=== PATIENT | female | born 1970 | race Caucasian/White ===

== ENCOUNTER 2020-07-05 15:11 | Outpatient (CLI) | payer OTHER, SELFPAY ==
--- NOTE | ~2020-07-05 | MM_ITS ---
EXAMINATION: MM screening louisa BI w sasha HISTORY: Screening mammogram TECHNIQUE: Craniocaudal and mediolateral oblique 3-D tomosynthesis images were obtained and synthetic 2-D images were generated. CAD analysis was submitted and interpreted. COMPARISON: 04/13/2019 diagnostic left digital mammogram and complete left breast ultrasound examinati on 04/07/2019, 10/08/2017, 01/2017 bilateral digital screening mammogram examinations BREAST PARENCHYMAL COMPOSITION: The breasts are heterogeneously dense, which may obscure small masses . FINDINGS: There is stable asymmetry in the upper inner quadrant of the left breast in an area of prev iously reported benign excisional breast biopsy. History of bilateral benign breast biopsies. There is no evidence of suspicious mass, calcification, or interval architectural distortion to sugg est malignancy in either breast. There has been no suspicious interval change. IMPRESSION: 1. No mammographic evidence of malignancy. 2. Recommend routine screening mammography in one year. BI-RADS Category 2: Benign finding(s). Reviewed, dictated and finalized at location A. INE ENGRAVER
== END 2020-07-05 15:12 | disposition home or self-care (01) ==
LOC: ANHIMG 15:14
PROVIDERS: PCP Family Medicine; Visit Provider Family Medicine
DX: Z12.31 Encounter for screening mammogram for malignant neoplasm of breast (principal)
CPT/HCPCS: 77063; 77067

== ENCOUNTER → 2020-10-05 14:03 | Outpatient (CLI) | payer OTHER, SELFPAY ==
--- NOTE | ~2020-10-05 | XR_ITS ---
EXAMINATION: XR wrist RT min 3V EXAM DATE: 10/05/2020 14:24 INDICATION: Pain in right wrist, injury. Initial encounter. TECHNIQUE: Right wrist frontal, frontal with ulnar deviation, oblique and lateral projections obtain ed and reviewed. There is no prior study for comparison. FINDINGS: Right wrist scapholunate joint space is maintained. There are no acute fractures or disloca tions identified. There is no subcutaneous gas. The soft tissue is unremarkable. There are no rad iopaque foreign bodies. IMPRESSION: No acute osseous findings. Reviewed, dictated and finalized at location A. K BAR COOK IMPRESSION: No acute osseous findings.
== END ==
PROVIDERS: PCP Family Medicine; Visit Provider Family Medicine
DX: M25.531 Pain in right wrist (principal)
CPT/HCPCS: 73110

== ENCOUNTER → 2021-08-02 02:15 | Outpatient (CLI) | payer OTHER, SELFPAY ==
[2021-08-02 20:34] LABS: SARS-CoV-2 RNA PCR Positive
== END ==
PROVIDERS: PCP Family Medicine; Visit Provider Physician Assistant Medical
DX: U07.1 COVID-19 (principal)
CPT/HCPCS: C9803; U0003; U0005

== ENCOUNTER 2021-08-14 10:41 | Outpatient (CLI) | payer OTHER, SELFPAY ==
--- NOTE | ~2021-08-14 | MM_ITS ---
EXAMINATION: MM screening louisa BI w sasha HISTORY: Screening TECHNIQUE: Craniocaudal and mediolateral oblique 3-D tomosynthesis images were obtained and synthetic 2-D images were generated. CAD analysis was submitted and interpreted. COMPARISON: Comparison to multiple prior studies sequentially, with oldest reviewed study dated 08/20. BREAST PARENCHYMAL COMPOSITION: The breasts are heterogeneously dense, which may obscure small masses . FINDINGS: The right breast is stable without evidence for malignancy. There are areas of possible arc hitectural distortion scattered throughout the left breast IMPRESSION: 1. Multiple possible areas of architectural distortion in the left breast. 2. Additional mammographic views and possible breast ultrasound are recommended. BI-RADS Category 0: Incomplete: Needs additional imaging evaluation. Reviewed, dictated and finalized at location A. PACKER IMPRESSION: 1. Multiple possible areas of architectural distortion in the left breast. 2. Additional mammographic views and possible breast ultrasound are recommended . BI-RADS Category 0: Incomplete: Needs additional imaging evaluation.
== END 2021-08-14 10:42 | disposition home or self-care (01) ==
LOC: ANHIMG 10:43
PROVIDERS: PCP Family Medicine; Visit Provider Family Medicine
DX: Z12.31 Encounter for screening mammogram for malignant neoplasm of breast (principal); R92.8 Other abnormal and inconclusive findings on diagnostic imaging of breast
CPT/HCPCS: 77063; 77067

== ENCOUNTER 2021-09-04 11:42 | Outpatient (CLI) | payer OTHER, SELFPAY ==
--- NOTE | ~2021-09-04 | MMUS_ITS ---
EXAMINATION: MM diagnostic louisa LT w sasha, US breast LT complete HISTORY: Follow-up possible or architectural distortion. TECHNIQUE: Additional 3-D tomosynthesis images of the left breast were performed and synthetic 2-D im ages were generated. CAD analysis was submitted and interpreted. High resolution complete left breast ultrasound was performed. COMPARISON: Comparison to multiple prior studies sequentially, with oldest reviewed study dated 01/2017. BREAST PARENCHYMAL COMPOSITION: The breasts are heterogenously dense, which may obscure small masses FINDINGS: MAMMOGRAPHIC FINDINGS: The areas of asymmetry noted on prior screening mammogram are less apparent with spot compression and mediolateral view. No discrete mass or suspicious clustered calcifications are identified. ULTRASOUND: Complete left breast ultrasound including all 4 quadrants in the retroareolar region: Normal heterogeneous echotexture without focal mass IMPRESSION: 1. . Probable benign focal asymmetries of the left breast without sonographic correlate. 2. Recommend 6 month follow-up diagnostic left mammogram. BI-RADS category 3, probably benign findings. Reviewed, dictated and finalized at location A. IC HEALTH EPIDEMIOLOGIST IMPRESSION: 1. . Probable benign focal asymmetries of the left breast without sonographic c orrelate. 2. Recommend 6 month follow-up diagnostic left mammogram. BI-RADS category 3, probably benign findings.
== END 2021-09-04 11:43 | disposition home or self-care (01) ==
LOC: ANHIMG 11:43
PROVIDERS: PCP Family Medicine; Visit Provider Family Medicine
DX: R92.8 Other abnormal and inconclusive findings on diagnostic imaging of breast (principal)
CPT/HCPCS: 76641; 77061; 77065; G0279

== ENCOUNTER 2022-01-12 13:39 | Emergency (ER) | payer OTHER, SELFPAY ==
--- NOTE | ~2022-01-12 | CT_ITS ---
EXAMINATION: CT brain wo con DATE: 01/12/2022 14:34 INDICATION: fall, head injury, nausea . TECHNIQUE: Computed tomography (CT) of the head was performed without intravenous contrast. The mA wa s adjusted according to patient size. Iterative reconstruction technique was employed. The dose-lengt h product was 605.33 mGy-cm. COMPARISON: CT sinus 10/08/2017. MR brain 03/26/2014. FINDINGS: No acute intracranial hemorrhage or extra-axial fluid collection. No hydrocephalus, mass, or herniation. No acute ischemic infarct. Unremarkable dural venous sinus attenuation. No acute osseous abnormality. Minimal mucosal opacification in the middle left ethmoid air cells and left maxillary sinus, otherwis e the aerated spaces are clear. IMPRESSION: No acute intracranial process. Reviewed, dictated and finalized at location K.
[2022-01-12 13:41] VITALS: BP 124/101; PULSE 74; RESP 16; TEMP 36.2; O2SAT 100
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
[2022-01-12] MEDS: ACETAMINOPHEN/ASPIRIN/CAFFEINE 250-250-65 MG TABLET 1 TABLET PO (14:56)
== END 2022-01-12 15:03 | disposition home or self-care (01) ==
PROVIDERS: Emergency Provider Emergency Medicine; PCP Family Medicine
DX: S06.0X0A Concussion without loss of consciousness, initial encounter (principal); E03.9 Hypothyroidism, unspecified; Z87.891 Personal history of nicotine dependence; Z79.84 Long term (current) use of oral hypoglycemic drugs; W20.8XXA Other cause of strike by thrown, projected or falling object, initial encounter
CPT/HCPCS: 70450; 99284; A9270

== ENCOUNTER 2022-04-01 12:19 | Outpatient (CLI) | payer OTHER, SELFPAY ==
--- NOTE | ~2022-04-01 | MM_ITS ---
EXAMINATION: MM diagnostic louisa LT w sasha HISTORY: Six-month follow-up for probably benign left breast architectural distortion. TECHNIQUE: Craniocaudal, mediolateral, and mediolateral oblique 3-D tomosynthesis images of the left breast were performed and synthetic 2-D images were generated. CAD analysis was submitted and interpr eted. COMPARISON: 09/04/2021, 08/14/2021, 07/05/2020 BREAST PARENCHYMAL COMPOSITION: The breasts are heterogeneously dense, which may obscure small masses . FINDINGS: There is stable architectural distortion in the upper inner quadrant of the left breast at the site of prior biopsy. No additional areas of architectural distortion are identified. There is no suspicious mass or calcification. IMPRESSION: 1. No mammographic evidence of malignancy. 2. Routine screening mammography is recommended. BI-RADS Category 2: Benign finding(s). Reviewed, dictated and finalized at location A.
== END 2022-04-01 12:20 | disposition home or self-care (01) ==
LOC: ANHIMG 12:20
PROVIDERS: PCP Family Medicine; Visit Provider Family Medicine
DX: R92.8 Other abnormal and inconclusive findings on diagnostic imaging of breast (principal)
CPT/HCPCS: 77061; 77065; G0279

== ENCOUNTER → 2022-10-31 08:22 | Outpatient (CLI) | payer OTHER, SELFPAY ==
--- NOTE | ~2022-10-31 | CT_ITS ---
CT scan of the Neck Technique: 2.5 mm axial scans were obtained through the neck after intravenous administration of 75 c c Omnipaque 350. Coronal and sagittal reconstructions of the neck were obtained. Dose reduction techn ique was used on this scan by utilizing automated exposure control and iterative reconstruction techn ique. The dose-length product (DLP) was 351.46 mGy-cm. Clinical History: Left parotid tumor Findings: There is no evidence of any significant cervical lymphadenopathy. Several small, nonenlarged jugulo- digastric and posterior cervical lymph nodes are noted bilaterally. Parapharyngeal spaces appear norm al bilaterally. Small probable bilateral intraparotid lymph nodes are present. No overtly suspicious parotid mass identified in either side. Submandibular glands are unremarkable. The pharyngeal mucosal spaces appear normal. No soft tissue masses are seen in the neck. The thyroid gland appears normal. Images of the lung apices reveal no abnormalities. Impression: No abnormal mass lesion identified. In particular, no suspicious parotid mass identified. Reviewed, dictated and finalized at location . Impression: No abnormal mass lesion identified. In particular, no suspicious parotid mass i dentified.
== END ==
PROVIDERS: PCP Family Medicine; Visit Provider Otolaryngology
DX: D49.0 Neoplasm of unspecified behavior of digestive system (principal)
CPT/HCPCS: 70491; Q9967

== ENCOUNTER 2023-08-05 15:29 | Outpatient (CLI) | payer OTHER, SELFPAY ==
--- NOTE | ~2023-08-05 | MM_ITS ---
EXAMINATION: MM screening louisa BI w sasha HISTORY: Screening mammogram TECHNIQUE: Craniocaudal and mediolateral oblique 3-D tomosynthesis images were obtained and synthetic 2-D images were generated. CAD analysis was submitted and interpreted. COMPARISON: 04/01/2022, 09/04/2021, 08/14/2021, 07/05/2020 BREAST PARENCHYMAL COMPOSITION: The breasts are heterogeneously dense, which may obscure small masses . FINDINGS: Again noted is stable architectural distortion in the upper inner quadrant of the left partha st at the site of prior excisional biopsy. No suspicious mass, calcification, or architectural distor tion are identified in either breast to suggest malignancy. There has been no suspicious interval merari nge. IMPRESSION: 1. No mammographic evidence of malignancy. 2. Recommend routine screening mammography in one year. BI-RADS Category 2: Benign finding(s). Reviewed, dictated and finalized at location A. CATION ANALYST
--- NOTE | ~2023-08-05 | DEXA_ITS ---
Bone Density Report Name: MIKEL VARGAS Age: 53 Sex: Female Ethnicity: White Date of : 1970 Indication: postmenopausal; screening for osteoporosis; hysterectomy; Referring Provider: WHITNEY ZHANG Study: Bone densitometry was performed. Exam Date: August 05, 2023 Accession number: [id number] Bone Density: Region BMD T-score Z-score Classification AP Spine(L1-L4) 0.854 -1.8 -0.7 Osteopenia Femoral Neck (Left) 0.678 -1.5 -0.5 Osteopenia Total Hip (Left) 0.879 -0.5 0.2 Normal Femoral Neck (Right) 0.717 -1.2 -0.1 Osteopenia Total Hip (Right) 0.865 -0.6 0.0 Normal Total Hip Mean 0.872 -0.6 0.1 Normal World Health Organization criteria for BMD impression classify patients as: Normal (T-score at or above -1.0), Osteopenia (T-score between -1.0 and -2.5), or Osteoporosis (T-score at or below -2.5). 10-year Fracture Risk(1): Major Osteoporotic Fracture 6.4% Hip Fracture 0.5% Reported Risk Factors: [place] (), Neck BMD=0.678, BMI=31.6 (1) FRAX(R) Version 3.08. Fracture probability calculated for an untreated patient. Fracture probability may be lower if the patient has received treatment. Clinical Information Provided by Patient: Has used the following medications: Vitamin D Has the following medical conditions: Hysterectomy Patient maximum height was 65 Menopause Age: 51 No regular weight bearing exercise Drinks caffeinated beverages Onset of menses at age 1 Number of children 16 Impression: The patient has low bone mass, based on the Total Spine T-score. The patient has an estimated ten-year risk of hip fracture of 0.5% and an estimated ten-year risk of major fracture of 6.4%, based on the WHO FRAX algorithm. Discussion: BONE DENSITY IS LOW AT ONE OR MORE SKELETAL SITES. This patient's lowest T-score is low at one or more skeletal sites. It meets the World Health Organization's (WHO) criteria for ?low bone mass? (T-score between -1.0 and -2.5). The patient's 10-year risk of fracture as calculated by FRAX is less than the threshold where pharmacological therapy is recommended by the National Osteoporosis Foundation (NOF). However, all treatment decisions require clinical judgment and consideration of individual patient factors, including patient preferences, comorbidities, previous drug use, risk factors not captured in the FRAX model (e.g., frailty, falls, vitamin D deficiency, increased bone turnover, interval significant decline in bone density) and possible under or overestimation of fracture risk by FRAX. The patient should follow a healthful lifestyle (good nutrition with adequate calcium and vitamin D, and appropriate weight-bearing exercise). Follow-Up: Consider repeating this study in 2 to 3 years to reassess this patient's status, or sooner if there is
== END 2023-08-05 15:30 | disposition home or self-care (01) ==
PROVIDERS: PCP Family Medicine; Visit Provider Physician Assistant
DX: Z12.31 Encounter for screening mammogram for malignant neoplasm of breast (principal); Z78.0 Asymptomatic menopausal state; M85.88 Other specified disorders of bone density and structure, other site; M85.852 Other specified disorders of bone density and structure, left thigh; M85.851 Other specified disorders of bone density and structure, right thigh
CPT/HCPCS: 77063; 77067; 77080

== ENCOUNTER 2024-02-16 09:36 | Outpatient (CLI) | payer OTHER, SELFPAY ==
--- NOTE | ~2024-02-16 | MR_ITS ---
MR breast BI wo/w con 02/16/2024 15:55 CDT INDICATION: Family history of breast cancer. TECHNIQUE: MRI of the breasts perform using standard protocol pre-and post IV contrast with the follo wing sequences: Axial T2 STIR, axial T1, axial vibrant T1 with fat suppression precontrast and multip hasic postcontrast. 14 cc MultiHance administered intravenously. Mammogram dated 08/05/2023 COMPARISON: FINDINGS: There are no abnormalities on the precontrast sequences. There is minimal background parenc hymal enhancement. No enhancing lesions following contrast administration. No areas of enhancement meeting threshold criteria on CAD analysis. No evidence of signal abnormalities in the axillary or i nternal mammary node distributions. LEFT BREAST: No signal abnormalities on precontrast sequences. There is minimal background parenchym al enhancement. No enhancing lesions following contrast administration. No areas of enhancement me eting threshold criteria on CAD analysis. No evidence of signal abnormalities in the axillary or in ternal mammary node distributions.] Incidental note is made of a gallstone. IMPRESSION: 1: Right breast: Negative. No evidence of malignancy. BI-RADS category 1. Recommend annual mammo graphy follow-up. 2: Left breast: Negative. No evidence of malignancy. BI-RADS category 1. Recommend annual mammogr aphy follow-up. Follow-up MRI may be useful for supplementing mammographic evaluation as clinically indicated. Reviewed, dictated and finalized at location B. IMPRESSION: 1: Right breast: Negative. No evidence of malignancy. BI-RADS category 1. Recommend annual mammography follow-up. 2: Left breast: Negative. No evidence of malignancy. BI-RADS category 1. Re commend annual mammography follow-up. Follow-up MRI may be useful for supplementing mammographic evaluation as clinic ally indicated.
== END 2024-02-16 09:37 | disposition home or self-care (01) ==
LOC: ANHIMG 09:40
PROVIDERS: PCP Family Medicine; Visit Provider Family Medicine
DX: Z12.31 Encounter for screening mammogram for malignant neoplasm of breast (principal); R92.8 Other abnormal and inconclusive findings on diagnostic imaging of breast; Z87.898 Personal history of other specified conditions; Z80.3 Family history of malignant neoplasm of breast
CPT/HCPCS: 77049; A9577; C8908

== ENCOUNTER 2024-10-09 08:08 | Emergency (ER) | payer OTHER, SELFPAY ==
--- NOTE | ~2024-10-09 | XR_ITS ---
EXAMINATION: XR hand RT min 3V DATE: 10/09/2024 08:58 INDICATION: Right hand injury. TECHNIQUE: 3 views of right hand were obtained. COMPARISON: Right wrist radiographs 10/05/2020 FINDINGS: Alignment is normal. No fracture. There is mild osteoarthritis of third and fourth distal i nterphalangeal joints. IMPRESSION: 1. No fracture or radiopaque foreign body. Reviewed, dictated and finalized at location A. 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
[2024-10-09 08:30] VITALS: BP 106/78; PULSE 77; RESP 16; TEMP 36.6; O2SAT 100
--- NOTE | 2024-10-09 08:52 | ED.UPPEXIN ---
HPI - Extremity Injury (Upper) General Chief Complaint: Extremity Injury, Upper Stated Complaint: RT hand injury History of Present Illness HPI narrative: 54-year-old female presents today with complaints of right hand pain. Patient was working on [employer] last night when she thinks that she got a nail into her right palm. She did not pull anything out. Patient with the erythema and swelling to base of right thumb on palmar aspect. No purulent drainage noted. Patient with full range of motion. Tetanus is up-to-date and 2022. No foreign object visualized or felt. Related Data Allergies Allergy/AdvReac Type Severity Reaction Status Date / Time erythromycin base Allergy Unknown Nausea Verified 10/09/24 08:31 Review of Systems Review of Systems: All systems reviewed & are unremarkable except as noted in HPI and below Eyes: Eyes: Reports as per HPI ENT: Reports as per HPI Cardiovascular: Cardiovascular: Reports as per HPI Respiratory: Respiratory: Reports as per HPI Genitourinary: Genitourinary: Reports as per HPI Musculoskeletal: Musculoskeletal: Reports as per HPI Integumentary/Breasts: Skin/Breast: Reports as per HPI Neurologic: Reports as per HPI Psychiatric: Psychiatric: Reports as per HPI Endocrine: Endocrine: Reports as per HPI Hematologic/Lymphatic: Hematologic/Lymphatic: Reports as per HPI Allergic/Immunologic: Allergic/Immunologic: Reports as per HPI PMF Past Medical History Medical History Bilateral knee pain Excessive bleeding in the premenopausal period Infusion reaction iron Perimenopausal vasomotor symptoms Right wrist pain Surgical History Surgical History History of sinus surgery Family History Family History Grandparent Family history of lung cancer Family history of malignant neoplasm of male breast Family history of migraine headaches Family history of malignant neoplasm of breast Father Family history of migraine headaches Malignant neoplasm of prostate Patient's father is in good health Family history of hearing loss Mother Family history of migraine headaches Patient's mother is in good health Family history of anemia Sibling Patient's sister is in good health Patient's brother is in good health Other Diabetes mellitus Family history of breast disorder Social History Social History Smoking status: Never smoker Smoking end date: 08/04/10 Alcohol intake: current Substance use: current Substance use type: marijuana Other substance usage details: smokes but very rarely Lack of Transportation: No Lack of Food: Never True Current Housing: I Have Housing Concerned About Future Housing: No Difficulty Paying Gas/Electric Bills: No Difficulty Paying for Meds: No Currently Unemployed: No Education: Master's Degree or Higher Difficulty w/ Childcare or Family Care: No Spiritual care concerns: No Exam Const: General: cooperative, healthy appearing, comfortable, no acute distress and well developed Orientation/consciousness: patient oriented x3 HENMT: Head: normal to inspection Eyes: General: appearance normal, both eyes and all related structures Resp: Effort & Inspection: normal respiratory effort and able to speak in complete sentences Auscultation: clear to auscultation bilaterally Cardio: Rate: regular rate Rhythm: regular rhythm Heart sounds: S1 normal heart sound present and S2 normal heart sound present Skin: General skin exam: normal color Wounds: wounds noted Other: right hand base of thumb looney aspect with scab erythema and small amount of swelling. Neuro: General: patient oriented x3 Cognition (Neuro): normal cognition Speech: normal speech Psych: Mental Status: mental status grossly normal Course Course Level of Care: Express Care Visit Vital Signs Vital signs: Vital Signs Temperature 98 F 10/09/24 08:30 Pulse Rate 77 10/09/24 08:30 Respiratory Rate 16 10/09/24 08:30 Blood Pressure 106/78 10/09/24 08:30 Pulse Oximetry 100 10/09/24 08:30 Temperature 98 F 10/09/24 08:30 Pulse Rate 77 10/09/24 08:30 Respiratory Rate 16 10/09/24 08:30 Blood Pressure 106/78 10/09/24 08:30 Pulse Oximetry 100 10/09/24 08:30 MDM - Extremity Injury (Upper) MDM Narrative Medical decision making narrative: 54-year-old female HPI started. Differentials include but not limited to cellulitis, retained foreign object, abrasion. Tetanus is up-to-date and last was done in 2022. x-ray obtained for evaluation of retained foreign material. No foreign object noted. Will treat with cephalexin 500 t.i.d. x7 days for cellulitis due to puncture wound. Discussed follow-up an to ER with worsening or concerning symptoms. Medical Records Attestation: I reviewed the patient's medical records. Imaging Data Attestation: I personally reviewed and interpreted this imaging study as follows: Radiologist's impression: Impressions Hand X-Ray 10/09/24 09:05 IMPRESSION: 1. No fracture or radiopaque foreign body. Discharge Plan Discharge Clinical Impression: Puncture wound, Cellulitis Patient Disposition: Home, Self-Care Condition: Stable Instructions: Antibiotic Form, Puncture Wound (ED) Additional Instructions: There is no foreign body noted on her x-ray. Please take antibiotics as prescribed. Return with any worsening or concerning symptoms. To ER with emergent or severe symptoms. Patient Language: Japanese Prescriptions: New cephalexin 500 mg capsule 500 mg PO Q8H 7 Days Qty: 21 0RF No Action ibuprofen 600 mg tablet See Rx Instructions .ROUTE .COMPLEX Qty: 270 3RF Dose Instruction: TAKE 1 TABLET THREE TIMES A DAY NEEDED FOR PAIN Rx Instructions: TAKE 1 TABLET THREE TIMES A DAY NEEDED FOR PAIN metformin 500 mg tablet extended release 24 hr See Rx Instructions .ROUTE .COMPLEX Qty: 360 3RF Dose Instruction: AT THE START OF THERAPY TAKE 1 TABLET EVERY EVENING. INCREASE BY 500 MG DAILY EVERY WEEK TOLERATED. MAXIMUM 4 TABLETS (2000 MG) PER DAY Rx Instructions: AT THE START OF THERAPY TAKE 1 TABLET EVERY EVENING. INCREASE BY 500 MG DAILY EVERY WEEK TOLERATED. MAXIMUM 4 TABLETS (2000 MG) PER DAY desloratadine 5 mg tablet 5 mg PO DAILY Qty: 90 2RF levothyroxine [Synthroid] 137 mcg tablet 137 mcg PO DAILY Qty: 90 2RF rizatriptan 10 mg tablet See Rx Instructions PO .COMPLEX Qty: 90 1RF Rx Instructions: take 1 tab at onset of headache; if no relief may repeat 1 tab after at least 2 hrs; max = 3 tabs/24 hr PO Veozah 45 mg tablet 45 mg PO DAILY Qty: 90 3RF cholecalciferol (vitamin D3) 1,250 mcg (50,000 unit) capsule See Rx Instructions .ROUTE .COMPLEX Qty: 12 3RF Dose Instruction: TAKE 1 CAPSULE WEEKLY Rx Instructions: TAKE 1 CAPSULE WEEKLY bupropion HCl 300 mg tablet extended release 24 hr 300 mg PO QAM Qty: 90 3RF lisinopril 10 mg tablet See Rx Instructions .ROUTE .COMPLEX Qty: 90 1RF Dose Instruction: TAKE 1 TABLET DAILY Rx Instructions: TAKE 1 TABLET DAILY- cetirizine 10 mg tablet 10 mg PO DAILY PRN (Reason: allergy symptoms) Qty: 90 3RF ferrous sulfate 325 mg (65 mg iron) tablet 325 mg PO DAILY Qty: 90 1RF lansoprazole 30 mg capsule,delayed release(DR/EC) 30 mg PO BID Qty: 180 0RF Rx Instructions: NEEDS APPOINTMENT FOR FURTHER REFILLS venlafaxine 75 mg capsule,extended release 24hr 75 mg PO DAILY Qty: 90 0RF Rx Instructions: last refill until seen. propranolol 20 mg tablet See Rx Instructions .ROUTE .COMPLEX Qty: 90 0RF Dose Instruction: TAKE 1 TABLET DAILY (DUE FOR APPOINTMENT IN JULY) Rx Instructions: TAKE 1 TABLET DAILY (DUE FOR APPOINTMENT IN JULY) Follow-up/Referrals: Fide Peters MD [Primary Care Provider] - 1 Week
== END 2024-10-09 09:22 | disposition home or self-care (01) ==
PROVIDERS: Emergency Provider Nurse Practitioner Family; PCP Family Medicine
DX: S61.431A Puncture wound without foreign body of right hand, initial encounter (principal); L03.113 Cellulitis of right upper limb; X58.XXXA Exposure to other specified factors, initial encounter; Z87.891 Personal history of nicotine dependence; F12.90 Cannabis use, unspecified, uncomplicated
CPT/HCPCS: 73130; 99213; G0463

== ENCOUNTER 2025-03-31 14:17 | Outpatient (CLI) | payer OTHER, SELFPAY ==
--- NOTE | ~2025-03-31 | XR_ITS ---
EXAM/ PROCEDURE: XR hip LT 2V w AP pelvis - 03/31/2025 14:27 CDT HISTORY: 54 years old Female with M25.552 - Pain in left hip x 1 week COMPARISON: None available TECHNIQUE: Three view(s) FINDINGS/ IMPRESSION: There are no fractures or dislocations.Joint space narrowing, subchondral sclerosis, subchondral cyst formation and osteophyte formation, compatible with mild osteoarthritis. Reviewed, dictated and finalized at location N.
== END 2025-03-31 14:18 | disposition home or self-care (01) ==
PROVIDERS: PCP Family Medicine; Visit Provider Family Medicine
DX: M25.552 Pain in left hip (principal)
CPT/HCPCS: 73502

== ENCOUNTER 2025-05-16 07:06 | Outpatient (CLI) | payer OTHER, SELFPAY ==
--- NOTE | ~2025-05-16 | MR_ITS ---
EXAMINATION: MR hip LT wo con DATE: 05/16/2025 07:48 INDICATION: Left hip pain and difficulty ambulating TECHNIQUE: Magnetic resonance imaging (MRI) of the left hip was performed without intravenous contrast. Sequences included full-field axial PD-weighted FS FSE and T1-weighted FSE, coronal of the pelvis with PD-weighted FS FSE, small field of view of the left hip with axial PD-weighted FS FSE, sagittal PD- weighted FS FSE and coronal PD weighted FS FSE. Additional radial T1-weighted FGR oriented orthogonal to the acetabular rim were obtained for evaluation of the labrum. COMPARISON: None FINDINGS: Bones/labrum/cartilage: Alignment is normal. No fracture, avascular necrosis or pathologic marrow replacing process. Mild to moderate osteoarthritis at the left hip with posterior predominant nonuniform joint space narrowing where there is partial thickness cartilage loss involving greater than 50% of the cartilage thickness without degenerative subchondral changes. There are small marginal osteophytes about the femoral head and acetabulum. Amorphous mild increased signal consistent with mild degeneration without discrete tear at the anterosuperior to superolateral left acetabular labrum. Mild lumbar spondylosis. Similar findings suggested the contralateral right hip but not diagnostically evaluated on the larger [id number] images. Fluid: Asymmetric small left hip joint effusion. No free fluid in the pelvis, bursitis or other abnormal fluid collections. Soft tissues: Normal and symmetric muscle bulk and signal in the pelvis and visualized proximal thighs. The bilateral iliopsoas, gluteal and proximal hamstring tendons are normal. Limited evaluation of visceral organs of the pelvis is unremarkable. No pathologically enlarged pelvic/inguinal lymphadenopathy. IMPRESSION: 1. Mild to moderate osteoarthritis left hip with disc herniation of the anterosuperior to superolateral labrum and likely reactive small left hip joint effusion. 2. Similar findings absent the joint effusion at the contralateral right hip. Reviewed, dictated and finalized at location A. IMPRESSION: 1. Mild to moderate osteoarthritis left hip with disc herniation of the anteros uperior to superolateral labrum and likely reactive small left hip joint effusi on. 2. Similar findings absent the joint effusion at the contralateral right hip.
== END 2025-05-16 07:07 | disposition home or self-care (01) ==
PROVIDERS: PCP Family Medicine; Visit Provider Family Medicine
DX: M16.12 Unilateral primary osteoarthritis, left hip (principal)
CPT/HCPCS: 73721